=== PATIENT | female | born 1965 | race African-American/Black ===

== ENCOUNTER 2017-01-26 09:33 | Emergency (ER) | payer BC ==
[~2017-01-26] VITALS: Ht 160 cm; Wt 71.2 kg
[2017-01-26 09:45] VITALS: BP 156/100
[2017-01-26 12:30] VITALS: BP 156/100
--- NOTE | 2017-01-27 10:32 | Diagnostic Imaging Report ---
APPROVED REPORT CPT Code: 33208 Present Symptoms Lower Extremity Pain: Right Comments: Right calf pain. RIGHT LEG: Imaging reveals a patent deep venous system. There is no evidence of thrombus within the femoral, popliteal or tibial segments. The greater saphenous veins are also within normal limits. Doppler indicates normal spontaneous flow within these segments.
--- NOTE | 2017-01-27 10:32 | Diagnostic Imaging Report ---
APPROVED REPORT CPT Code: 24947 Present Symptoms Lower Extremity Pain: Right Comments: Right calf pain. RIGHT LEG: Imaging reveals a patent deep venous system. There is no evidence of thrombus within the femoral, popliteal or tibial segments. The greater saphenous veins are also within normal limits. Doppler indicates normal spontaneous flow within these segments.
--- NOTE | 2017-01-27 10:32 | Diagnostic Imaging Report ---
APPROVED REPORT CPT Code: 44650 Present Symptoms Lower Extremity Pain: Right Comments: Right calf pain. RIGHT LEG: Imaging reveals a patent deep venous system. There is no evidence of thrombus within the femoral, popliteal or tibial segments. The greater saphenous veins are also within normal limits. Doppler indicates normal spontaneous flow within these segments.
--- NOTE | 2017-01-29 16:31 | Emergency Room Report ---
History of Present Illness General Chief Complaint: Pain Source: Patient Present Illness HPI Patient is a 51-year-old female presented after increased right lower extremity cramping. Patient gradual onset of symptoms. Patient reported having cramping with ambulation. 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 She denied any fever. She denied any leg numbness. She's been able to ambulate normally. Patient History Last Menstrual Period: 12/31/16 Reviewed Nursing Documentation: PMH: Agreed, PSxH: Agreed Nursing Documentation-PMH Past Medical History: No Stated History Review of Systems All Other Systems: negative except mentioned in HPI Physical Exam Vital Signs Date Time Temp Pulse Resp B/P (MAP) Pulse Ox O2 Delivery O2 Flow Rate FiO2 01/26/17 09:38 97.5 79 18 156/100 99 Room Air General Appearance: well appearing, no apparent distress, alert, GCS 15, non- toxic Head: normocephalic, atraumatic Eyes: bilateral eye other - disconjugate gaze ENT: hearing grossly normal, normal voice Neck: full range of motion, supple Respiratory: no respiratory distress, speaking full sentences Musculoskeletal: no calf tenderness Neurologic: normal gait Psychiatric: mood/affect normal Skin: no rash Medical Decision Making Diagnostic Impression: Primary Impression: Pain of right calf ER Course Patient presented for calf pain. Differential diagnosis included but was not limited to fracture, contusion, DVT, vascular insufficiency, aortic aneurysm, cellulitis.DVT ultrasound was negative. Patient has not showed evidence of cellulitis this time. Dr. Lew was notified of ultrasound results. The patient is advised to follow up with primary care doctor in 1-2 days. Patient is advised to return if any worsening condition or if any changes in status that are concerning. Last Vital Signs Date Time Temp Pulse Resp B/P (MAP) Pulse Ox O2 Delivery O2 Flow Rate FiO2 01/26/17 12:30 97.5 80 18 156/100 99 Room Air Status: improved Disposition: HOME, SELF-CARE Condition: Stable Patient Instructions: Muscle Pain, Adult [employer] Jan 29, 2017 16:31
== END 2017-01-26 13:50 | disposition home or self-care (01) ==
LOC: EMR 10:15
DX: M79.661 Pain in right lower leg (principal)
CPT/HCPCS: 93971; 99283